=== PATIENT | female | born 1990 | race Caucasian/White ===

== ENCOUNTER 2016-03-28 17:46 | Emergency (ER) | payer MEDICAID, OTHER | END 2016-03-28 18:17 | disposition home or self-care (01) | LOC: ED 17:46 | DX: S02.5XXA Fracture of tooth (traumatic), initial encounter for closed fracture (principal); F17.210 Nicotine dependence, cigarettes, uncomplicated; X58.XXXA Exposure to other specified factors, initial encounter; Y92.9 Unspecified place or not applicable ==